=== PATIENT | female | born 1980 | race Two or more races ===

== ENCOUNTER 2016-12-28 13:30 | Emergency (ER) | payer MEDICAID ==
[~2016-12-28] VITALS: Ht 157.5 cm; Wt 77.1 kg
[2016-12-28 13:48] VITALS: BP 121/77
[2016-12-28] MEDS ORDERED: TETANUS-DIPTH-ACEL PERTUSSIS 0.5ML SYRG IM ONE (22:00)
== END 2016-12-28 22:00 | disposition home or self-care (01) ==
LOC: ER 13:30
DX: S61.211A Laceration without foreign body of left index finger without damage to nail, initial encounter (principal); Z23 Encounter for immunization; W26.0XXA Contact with knife, initial encounter; Y93.89 Activity, other specified; Y99.8 Other external cause status; Y92.89 Other specified places as the place of occurrence of the external cause
CPT/HCPCS: 12002; 90471; 90715

== ENCOUNTER 2016-12-31 09:04 | Emergency (ER) | payer MEDICAID ==
[~2016-12-31] VITALS: Ht 157.5 cm; Wt 73.0 kg
[2016-12-31 10:23] VITALS: BP 118/70
== END 2016-12-31 10:58 | disposition home or self-care (01) ==
LOC: ER 09:04
DX: S61.311D Laceration without foreign body of left index finger with damage to nail, subsequent encounter (principal); X58.XXXD Exposure to other specified factors, subsequent encounter; Y99.8 Other external cause status; Y92.89 Other specified places as the place of occurrence of the external cause

== ENCOUNTER 2022-09-15 05:08 | Emergency (ER) | payer BC, MEDICAID ==
[~2022-09-15] VITALS: Ht 157.5 cm; Wt 80.3 kg
[2022-09-15 07:20] LABS: Urine Bacteria NONE SEEN /hpf (None Seen); Urine Blood 3+ /uL (Negative); Urine WBC 483 /hpf (0 - 5); Urine WBC Clumps PRESENT /hpf (None Seen)
[2022-09-15 07:34] LABS: Basophils # (auto) 0 10 ^3/uL (0-0.2); Basophils % (auto) 0.4 % (0.0-2.0); Eosinophils # (auto) 0.2 10 ^3/uL (0-0.8); Eosinophils % (auto) 2.7 % (0.0-7.0); Hematocrit 38.2 % (36.0-46.0); Hemoglobin 13.3 g/dL (12.2-16.2); Lymphocytes # (auto) 1.7 10 ^3/uL (0.4-5.4); Lymphocytes % (auto) 29.1 % (10.0-50.0); Mean Corpuscular Hemoglobin 29.8 pg (28.0-32.0); Mean Corpuscular Hgb Conc. 34.8 g/dL (32.0-36.0); Mean Corpuscular Volume 85.7 fL (80.0-100.0); Monocytes # (auto) 0.4 10 ^3/uL (0-1.3); Monocytes % (auto) 6.9 % (0.0-12.0); Neutrophils # (auto) 3.6 10 ^3/uL (1.6-8.6); Neutrophils % (auto) 60.9 % (37.0-80.0); Red Blood Cells 4.45 10^6/uL (4.0-5.20); Red Cell Distribution Width 12.8 % (11.8-14.3)
[2022-09-15 07:46] LABS: Albumin 3.7 g/dL (3.4-5.0); Calcium 8.3 mg/dL (8.5-10.1); Potassium 4.2 mmol/L (3.5-5.1)
[2022-09-15 07:51] LABS: BUN/Creatinine Ratio 29.4 (10.0-20.0); Bilirubin, Total 0.2 mg/dL (0.2-1.0)
[2022-09-15] MEDS ORDERED: cefTRIAXone SOD 1,000 MG VL IM ONE (08:15)
[2022-09-15] MEDS ORDERED: CEPH250C PO (09:41)
[2022-09-15 10:33] VITALS: BP 115/66
== END 2022-09-15 11:02 | disposition home or self-care (01) ==
LOC: ER 05:08
DX: O46.8X2 Other antepartum hemorrhage, second trimester (principal); O26.891 Other specified pregnancy related conditions, first trimester; N83.291 Other ovarian cyst, right side; R10.2 Pelvic and perineal pain; Z3A.16 16 weeks gestation of pregnancy
CPT/HCPCS: 36415; 76830; 76856; 80053; 81001; 84702; 85025; 96372; 99285; J0696